=== PATIENT | female | born 1965 | race Caucasian/White ===

== ENCOUNTER 2020-10-13 08:30 | Outpatient (REF) | payer OTHER, SELFPAY | END 2020-10-13 08:31 | disposition home or self-care (01) | LOC: HO.SCI 08:30 | PROVIDERS: Visit Provider Internal Medicine Cardiovascular Disease | DX: Z13.89 Encounter for screening for other disorder (principal) ==

== ENCOUNTER → 2020-11-30 08:22 | Outpatient (REF) | payer OTHER, SELFPAY ==
--- NOTE | ~2020-11-30 | NM_ITS ---
Lexiscan Myocardial perfusion study Indication: Chest pain, palpitations, assess for coronary disease and ischemia Technique: The patient was brought in for a Lexiscan perfusion study on 11/30/2020 and was injected 0.4 mg of Lexiscan intravenously. Within a minute of this injection 30 mCi of sestamibi was given intravenously. Images were obtained using the SPECT gamma camera interlaced with the gating device. Images were obtained in supine position. Resting perfusion study was performed on 12/02/2020. Patient was administered 30 mCi of sestamibi intravenously at rest. Images were then obtained in supine position. Total DLP 154mGy-cm. Images were processed with the software and compared side to side in short axis, horizontal long axis and vertical long axis views. Findings: Raw acquisition was reviewed. Arms by the patient's side. The stress perfusion study showed mild to moderately diminished tracer uptake in the distal part of inferior lateral wall; basal septum. With CT attenuation correction, the inferolateral defect improves significantly suggesting diaphragmatic attenuation artifact. The basal septal defect is still present but still probably artifactual. The gated study shows normal LV systolic function with calculated LVEF of 53%. LV cavity is normal in size. The gated study shows normal wall thickening and contraction of segments. Resting study shows basal septal perfusion defect, but otherwise unremarkable. Gating at rest reveals normal wall motion with ejection fraction at 60%. The findings are consistent with reversible distal inferolateralal; fixed basal septal defects, likely artifactual. NM/NM charles perf SPECT rest & str Impression: 1. Myocardial perfusion imaging study shows likely normal myocardial perfusion. 2. Gated LVEF is 53% during stress and 60% during rest. 3. Transient ischemic dilatation not present. EKG component of the test reported separately.
--- NOTE | 2020-11-30 08:30 | CA_ITS ---
Acquisition Time: 2020-11-30 08:47:14 Total Exercise Time: 00:02:00 Test Indications: Chest Pain Medications: SEE H Protocol: LEXISCAN Max HR: 118 BPM 76% of Pred: 154 BPM Max BP: 124/090 mmHG Max Work Load: 1.0 METS Pharmacological stress test with Lexiscan injection, while sitting and kicking her right leg, without anginal symptoms, without arrythmia, with normotensive response to injection, with nondiagnostic EKGs for ischemia, In recovery she had nausea and dry heaves that was treated with Aminophylline 75mg IVP to reverse Lexiscan with resolution of symptom. Nuclear images pending. Test reviewed with Dr Dunlap. Referred By: Enoc Weiss Overread By: ANGELICA RUIZ
== END ==
LOC: HO.CARD 08:22
PROVIDERS: Visit Provider Internal Medicine Cardiovascular Disease
DX: R07.9 Chest pain, unspecified (principal)
CPT/HCPCS: 78452; 93017; A9500; J0280; J2785